=== PATIENT | female | born 1985 | race Caucasian/White ===

== ENCOUNTER 2019-10-24 13:32 | Emergency (ER) | payer MEDICARE, MEDICAID, SELFPAY ==
[2019-10-24 13:46] VITALS: BP 146/107; PULSE 88; RESP 16; TEMP 36.7; O2SAT 100; BMI 35.9
[2019-10-24 13:56] VITALS: BP 125/91; PULSE 81; RESP 18; O2SAT 97
--- NOTE | 2019-10-24 13:56 | PC.NURSE ---
Patient reports that she has had chest pain for about 1 week. Patient states that the pain shoots from her back to her chest and her head. Patient reports the pain is in the center of her chest. Patient states she does have a cardiac history and has took 3 nitro at home today with no relief.
--- NOTE | 2019-10-24 13:59 | ED_ITS ---
Entered by Teresa Al, acting as scribe for Albert Dick DO HPI - Chest Pain General: Chief Complaint: Chest Pain Stated Complaint: CP Time Seen by Provider: 10/24/19 13:59 Source: patient Mode of arrival: ambulatory Limitations: no limitations History of Present Illness: HPI narrative: 34 yo female presents with chest pain. pt states this started 1 week ago. pt states pushing on her chest makes this worse and nothing makes it better. pt denies any other symptoms at this time. MD complaint: chest pain Onset (ago): week(s) (1 week ago) Timing of current episode: constant and still present Onset: during rest Pain location: substernal Pain radiation: none Severity: moderate (when pushing on chest) Quality: sharp Relieving factors: nothing Exacerbating factors: other (when pushed on ) Associated symptoms: Reports no associated symptoms; Deny abdominal pain, dyspnea, fever(s), nausea, palpitations, syncope or vomiting Treatment prior to arrival: none Review of Systems Const: Denies: fever, chills, body aches, fatigue, malaise or night sweats Eyes: Denies: change in vision or blurry vision ENMT: Denies: throat pain, oral sores/lesions, dental pain, nasal discharge or nasal congestion Card: Denies: palpitations, irregular heart rhythm, edema, syncope, shortness of breath on exertion, shortness of breath when lying down or leg pain with exertion Resp: Denies: shortness of breath, productive cough, non-productive cough or wheezing GI: Denies: abdominal pain, nausea, vomiting, vomiting blood, coffee grounds in vomit, difficulty swallowing, heartburn/indigestion, diarrhea, constipation, cramping, blood in stool or black tarry stool : Denies: flank pain, painful urination, urinary frequency, urinary urgency, urinary incontinence or blood in urine Musc: Denies: neck pain, back pain, extremity pain, extremity swelling, joint pain or joint swelling Skin/Breast: Denies: rash, itching or redness Neuro: Denies: headache, numbness in extremities, weakness in extremities, changes in sensation, lack of coordination, difficulty walking, frequent falls, dizziness, vertigo or confusion Psych: Denies: anxiety, depression, loss of interest, visual hallucinations, auditory hallucinations, suicidal ideation or homicidal ideation Endo: Denies: excessive urination, excessive thirst, tired all the time or cold intolerance Surjti/Lymph: Denies: easy bruising, easy bleeding, petechiae, enlarged lymph nodes or tender lymph nodes PFSH ED PFSH: Statuses (acute, chronic, etc) shown below reflect problem list status as previously entered and may not be historically accurate Family History Other Diabetes Heart disease Hypertension Social History Smoking and tobacco status: current every day smoker cigarettes Packs smoked per day: 0.5 Alcohol intake: never Household members: significant other and children Marital status: Life Partner Current occupational status: disabled Current gender identity: Female Physical Exam Const: COMMON NORMALS: average body habitus, oriented x3 and alert GENERAL APPEARANCE: cooperative, comfortable, well kempt and well developed NUTRITIONAL APPEARANCE: obese ORIENTATION/CONSCIOUSNESS: Yes awake, Yes oriented to person and Yes oriented to place HENMT: COMMON NORMALS: normocephalic, head/scalp atraumatic, EAC's normal, TM's normal bilaterally, external nose normal, moist oral mucous membranes and oropharynx normal HEAD & SCALP: normocephalic and atraumatic NOSE: external nose normal EXTERNAL AUDITORY CANAL: EAC's normal TYMPANIC MEMBRANE: TM's normal bilaterally MOUTH: oral and palatal mucosa normal, lip normal and tongue normal THROAT: posterior oropharynx normal and tonsils normal Eye: COMMON NORMALS: PERRL, EOMs intact bilaterally, conjunctivae normal and no scleral icterus CONJUNCTIVA: Yes conjunctivae normal PUPIL: Yes PERRL Neck/C-Spine: COMMON NORMALS: full ROM, no lymphadenopathy, supple, no meningeal signs and thyroid normal THYROID: thyroid normal and asymmetrical Lymph: LYMPHATIC: no lymphadenopathy noted Chest: CHEST: Yes tenderness (Squeeze a tenderness of the light palpation across the mid and upper portions of the sternum very reproducible patient confirmed this is the pain that brought her in. Interestingly she has no pain with deep inspiration) sternum Resp: COMMON NORMALS: normal respiratory effort, no retractions, no use of accessory muscles and clear to auscultation bilaterally AUSCULTATION: clear to auscultation bilaterally GI: COMMON NORMALS: normal to inspection, nondistended, normoactive bowel sounds, soft to palpation and no hepatosplenomegaly PALPATION: Yes soft and Yes no hepatosplenomegaly : COMMON NORMALS: Yes no CVA tenderness BLADDER/KIDNEY EXAM: Yes no CVA tenderness Back/Pelvis: COMMON NORMALS: no CVA tenderness LUMBAR SPINE/LOWER BACK: Yes normal to inspection Extremity: COMMON NORMALS: no clubbing, cyanosis or edema, no calf tenderness and no pedal edema Neuro: COMMON NORMALS: oriented x3 SENSORIUM/ORIENTATION: Yes alert, Yes oriented to person and Yes oriented to place MENINGEAL SIGNS: Yes no meningeal signs Psych: APPEARANCE: Yes well kempt Skin: COMMON NORMALS: no rashes or lesions noted and skin turgor normal GENERAL SKIN EXAM: no rashes or lesions noted and turgor normal Course Vital Signs: Vital signs: Vital Signs Temperature 98.1 F 10/24/19 13:46 Pulse Rate 86 10/24/19 14:58 Respiratory Rate 15 10/24/19 14:58 Blood Pressure 123/91 10/24/19 14:58 Pulse Oximetry 97 10/24/19 14:58 Discharge Plan Discharge Patient Disposition: Home, Self-Care Clinical Impression: Acute costochondritis Condition: Stable Prescriptions: New Tylenol-Codeine #3 300-30 mg tablet 1 tab PO QID PRN (Reason: pain) Qty: 14 RF: 0 No Action isosorbide mononitrate 30 mg tablet extended release 24 hr See Rx Instructions PO BID RF: 0 ranitidine HCl 150 mg capsule 150 mg PO BID RF: 0 losartan 100 mg tablet 100 mg PO ONCE RF: 0 baclofen 20 mg tablet 20 mg PO BID RF: 0 promethazine-DM Syrup PO RF: 0 montelukast [Singulair] 10 mg tablet 10 mg PO ONCE RF: 0 Symbicort 80-4.5 mcg/actuation HFA aerosol inhaler 2 puff INHALATION BID RF: 0 albuterol sulfate 2.5 mg /3 mL (0.083 %) solution for nebulization 2.5 mg INHALATION Q6H RF: 0 atorvastatin [Lipitor] 40 mg tablet 40 mg PO ONCE RF: 0 aspirin 81 mg tablet,chewable 1 tab PO ONCE RF: 0 pantoprazole [Protonix] 40 mg tablet,delayed release (DR/EC) 40 mg PO ONCE RF: 0 nitroglycerin 0.4 mg tablet, sublingual 0.4 mg SUBLINGUAL Q5M PRNRF: 0 aripiprazole [Abilify] 5 mg tablet 5 mg PO ONCE RF: 0 escitalopram oxalate [Lexapro] 20 mg tablet 20 mg PO ONCE Qty: 90 RF: 1 buspirone 10 mg tablet 10 mg PO TID Qty: 90 RF: 5 albuterol sulfate [ProAir HFA] 90 mcg/actuation HFA aerosol inhaler 2 puff INHALATION Q6H PRN (Reason: shortness of breath) Qty: 18 RF: 1 metoprolol tartrate 25 mg tablet 25 mg PO BID Qty: 60 RF: 5 Discharge Orders: Discharge Order (Routine); Ordered 10/24/19 Ordered By: Albert Dick Referrals: Alberto Jasso FNP [Primary Care Provider] - Discharge Diet: Usual diet Discharge Activity: Increase activity as tolerated Activity Restrictions/Additional Instructions: If worsening or not improving you can return to the emergency room or follow-up with your primary care physician Discharge Date/Time: 10/24/19 14:58 Coding Level of Care Code ED Suction Roller for Chg Fwd Exam Problem Focused The documentation recorded by the Servando padgett Bridget Annette, accurately reflects the service I personally performed and the decisions made by Kapil jnue Curtis L, DO Oct 24, 2019 13:32
--- NOTE | 2019-10-24 14:17 | XRR_ITS ---
PROCEDURE INFORMATION: Exam: XR Chest, 1 View Exam date and time: 10/24/2019 2:29 PM Age: 34 years old Clinical indication: Chest pain; On breathing; Additional info: Chest pain, difficulty breathing TECHNIQUE: Imaging protocol: XR of the chest Views: 1 view. COMPARISON: CR Chest 1 view [id number] 01/03/2019 7:51 PM FINDINGS: Lungs: Unremarkable. No consolidation. Pleural space: Unremarkable. No pleural effusion. No pneumothorax. Heart/Mediastinum: Unremarkable. No cardiomegaly. Bones/joints: Unremarkable. XR/XR chest 1V portable [id number] IMPRESSION: No acute findings.
[2019-10-24] MEDS: acetaminophen 500 mg Tablet 1000 MG PO (14:43)
[2019-10-24 14:58] VITALS: BP 123/91; PULSE 86; RESP 15; O2SAT 97
== END 2019-10-24 14:58 | disposition home or self-care (01) ==
PROVIDERS: Emergency Provider Family Medicine; Family Provider Registered Nurse; PCP Registered Nurse
DX: M94.0 Chondrocostal junction syndrome [Tietze] (principal); Z79.82 Long term (current) use of aspirin; F17.210 Nicotine dependence, cigarettes, uncomplicated
CPT/HCPCS: 71045; 99282; 99283

== ENCOUNTER → 2019-12-14 09:10 | Outpatient (BNVA) | payer MEDICARE, MEDICAID, SELFPAY | PROVIDERS: Family Provider Registered Nurse; PCP Registered Nurse; Visit Provider Psychiatry & Neurology Psychiatry | DX: F41.9 Anxiety disorder, unspecified (principal); F33.9 Major depressive disorder, recurrent, unspecified; F41.1 Generalized anxiety disorder; F33.2 Major depressive disorder, recurrent severe without psychotic features; F43.12 Post-traumatic stress disorder, chronic; F17.200 Nicotine dependence, unspecified, uncomplicated | CPT/HCPCS: 99204 ==

== ENCOUNTER → 2020-01-04 11:00 | Outpatient (BNVA) | payer MEDICARE, MEDICAID, SELFPAY | PROVIDERS: Family Provider Registered Nurse; PCP Registered Nurse; Visit Provider Nurse Practitioner Family | DX: Z20.828 Contact with and (suspected) exposure to other viral communicable diseases (principal) | CPT/HCPCS: 87635 ==

== ENCOUNTER 2020-02-22 09:05 | Outpatient (CLI) | payer MEDICARE, MEDICAID, SELFPAY ==
--- NOTE | 2020-02-22 | CT_ITS ---
WS: [id number] CT neck w con* [id number] REASON FOR EXAM: LOCALIZED SWELLING/MASS IV CONTRAST ADMINISTERED: Omnipaque 95 mL. TOTAL EXAM DLP: All CT scans at [facility] use at least one of these dose optimization techniques: automat ed exposure control; mA and/or kV adjustment per patient size (includes targeted exams where dose is matched to clinical indication); or iterative reconstruction. FINDINGS: The paranasal sinuses were all normal. The parotid glands appear to be normal as well as the submaxillary glands. The tongue show no abnormalities. The submental lymph nodes on the right are enlarged the largest measures 1.37 cm. There is also lymph nodes measured 9.55 mm on the right and on the left a lymph node measures 1.27 cm. The parapharyngeal area in the nasopharynx were normal with no masses seen. The carotid spaces show no definite masses or lymphadenopathy. The supraglottic area was normal as well as the infraglottic area. The larynx show normal appearance. The supra clavicular area was normal. The right and left lobes of the thyroid are normal. CT/CT neck w con* [id number] IMPRESSION: Submental and lateral lymphadenopathy is noted the largest node measures 1.37 c m on the right side.
[2020-02-22] MEDS: iohexol 300 mg/mL 100 mL Btl IV (10:00)
== END 2020-02-22 09:06 | disposition home or self-care (01) ==
LOC: RADWPI 09:09
PROVIDERS: PCP Registered Nurse; Visit Provider Specialist
DX: R59.1 Generalized enlarged lymph nodes (principal)
CPT/HCPCS: 70491; Q9967

== ENCOUNTER → 2020-03-06 07:46 | Outpatient (BNVA) | payer MEDICARE, MEDICAID, SELFPAY | PROVIDERS: PCP Registered Nurse; Visit Provider Psychiatry & Neurology Psychiatry | DX: F33.9 Major depressive disorder, recurrent, unspecified (principal); F41.9 Anxiety disorder, unspecified; F41.1 Generalized anxiety disorder; F33.2 Major depressive disorder, recurrent severe without psychotic features; F43.12 Post-traumatic stress disorder, chronic; F17.200 Nicotine dependence, unspecified, uncomplicated | CPT/HCPCS: 99213 ==

== ENCOUNTER → 2020-10-20 15:54 | Outpatient (BNVA) | payer MEDICARE, MEDICAID, SELFPAY | PROVIDERS: PCP Registered Nurse; Visit Provider Registered Nurse | DX: J01.40 Acute pansinusitis, unspecified (principal) | CPT/HCPCS: 87400 ==